=== PATIENT | male | born 1980 | race Caucasian/White ===

== ENCOUNTER 2016-12-30 16:17 | Emergency (ER) | payer SELFPAY ==
[~2016-12-30] VITALS: Ht 175.3 cm; Wt 77.6 kg
[2016-12-30 16:30] VITALS: BP 148/86
[2016-12-30] MEDS ORDERED: GENTAMICIN SUL3.5 GM OP (16:46)
[2016-12-30] MEDS ORDERED: ZYRTEC-D TABLE1 EACH ORAL (16:46)
--- NOTE | 2016-12-30 19:22 | Emergency Room Report ---
History of Present Illness General Chief Complaint: Eye Problems Source: Patient Present Illness HPI Patient presents with complaints of irritation to both eyes Patient reports yesterday he felt increased itching to the right eye Now feels the left eye is involved Describes increased discharge bilaterally this morning Take yellowish discharge Denies any pain There is some puritic sensation bilaterally Denies any obvious foreign body contact Denies any change in vision Allergies: Coded Allergies: CAT DANDER (Verified Allergy, Unknown, 12/30/16) Patient History Past Medical History: see triage record Pertinent Family History: none Reviewed Nursing Documentation: PMH: Agreed, PSxH: Agreed Nursing Documentation-PMH Past Medical History: No Stated History Review of Systems All Other Systems: negative except mentioned in HPI Physical Exam Vital Signs Date Time Temp Pulse Resp B/P Pulse Ox O2 Delivery O2 Flow Rate FiO2 12/30/16 16:24 98.2 78 16 148/86 100 Room Air Sp02 EP Interpretation: reviewed, normal General Appearance: well appearing, no apparent distress Head: normocephalic, atraumatic Eyes: bilateral eye other - Bilateral conjunctivitis, no signs of any uptake, pupils are reactive bilaterally ENT: normal pharynx, no angioedema Neck: supple, thyroid normal Respiratory: lungs clear Musculoskeletal: normal inspection Neurologic: normal inspection, alert Skin: no rash Medical Decision Making Diagnostic Impression: Primary Impression: conjunctivitis ER Course Patient's findings are in line with conjunctivitis Given the discharge in the appearance likely bacterial There is no signs of any obvious foreign body Patient's muscle exam is intact At this time stable for close outpatient trial Last Vital Signs Date Time Temp Pulse Resp B/P Pulse Ox O2 Delivery O2 Flow Rate FiO2 12/30/16 16:52 98.2 16 148/86 100 Room Air 12/30/16 16:24 78 Status: improved Disposition: HOME, SELF-CARE Condition: Stable Scripts Cetirizine Hcl/Pseudoephedrine (ZYRTEC-D TABLET) 1 Each Tab.er.12h 1 EACH ORAL DAILY, #20 TAB Prov: LARA CARR D.O. 12/30/16 Gentamicin Sulfate* (GENTAMICIN SULFATE*) 3.5 Gm Oint...g. 3.5 GM OP TID for 5 Days, GM Prov: LARA CARR D.O. 12/30/16 Referrals: NOT CHOSEN IPA/,REFERRING (PCP) Patient Instructions: Bacterial Conjunctivitis Additional Instructions: Patient is provided with the discharge instructions notified to follow up with primary doctor in the next 2-3 days otherwise return to the er with any worsening symptoms. Please note that this report is being documented using [employer] technology. This can lead to erroneous entry secondary to incorrect interpretation by the dictating instrument. LARA CARR D.O. Dec 30, 2016 19:22
== END 2016-12-30 17:00 | disposition home or self-care (01) ==
LOC: EMR 16:59
DX: H10.9 Unspecified conjunctivitis (principal); Z91.048 Other nonmedicinal substance allergy status
CPT/HCPCS: 99284